=== PATIENT | male | born 1990 | race Caucasian/White ===

== ENCOUNTER 2017-04-01 14:08 | Emergency (ER) | payer OTHER ==
[~2017-04-01] VITALS: Ht 172.7 cm; Wt 64.2 kg
[2017-04-01 14:20] VITALS: TEMP 36.9; Ht 172.7 cm; Wt 64.2 kg
[2017-04-01 14:27] VITALS: O2SAT 100
[2017-04-01] MEDS ORDERED: SODIUM CHLORIDE 0.9% 1000ML 1,000 ML IV STA (14:42)
--- NOTE | 2017-04-01 15:03 | DIAGNOSTIC IMAGING REPORT ---
CHEST ONE VIEW PORTABLE HISTORY: 27 years-old Male tachycardia acute tachycardia COMPARISON: None available TECHNIQUE: Upright AP view of the chest FINDINGS: Cardiomediastinal and hilar silhouettes are within normal limits. There is no pneumothorax, pleural effusion, focal airspace consolidation or overt pulmonary edema. The bones of the chest are grossly intact. IMPRESSION: No acute cardiopulmonary process. The above report was generated using voice recognition software. It may contain grammatical, syntax or spelling errors. Electronically signed by: Favian Alvarez M.D. 04/01/2017 3:02 PM Dictated Date/Time: 04/01/2017 3:01 PM
[2017-04-01 15:05] LABS: BUN/CREATININE RATIO 13.2 (10-20); CALCIUM 9.6 mg/dl (8.5-10.1); CREATININE 1.03 mg/dl (0.60-1.40); MAGNESIUM 2.1 mg/dl (1.8-2.4); POTASSIUM 3.7 mmol/L (3.5-5.1)
[2017-04-01 15:06] LABS: POINT OF CARE TROPONIN I < 0.030 ng/ml (0-0.045)
--- NOTE | 2017-04-01 15:11 | EMERGENCY ROOM VISIT NOTE ---
History First contact with patient: 14:25 Chief Complaint: TACHYCARDIA Stated Complaint: HIGH RESTING HEARTRATE, TROUBLE BREATHING Nursing Triage Summary: Pt. reports symptoms started on with a feeling of not being able to catch his breath. He then developed a rapid resting heart rate and feeling of his heart pounding in his chest and a "fuzzy feeling" in his head. He reports decreased appetite and decreased fluid intake. Denies any chest pain. History of Present Illness The patient is a 27 year old male who presents to the Emergency Room with complaints of elevated heart rate which began 3 days ago. The patient reports that beginning on , he felt like he was unable to catch his breath and felt like his heart was racing intermittently. The patient's symptoms persisted throughout the next day and worsened over the past 2 days. He states that his symptoms are intermittent but are more frequent at this time. He feels his heart racing and feels unable to catch his breath. He also reports that his head feels "cloudy." He has had a decreased appetite and decreased fluid intake. He denies any history of similar symptoms. He denies any cardiac history. He does note that his brother had a heart valve disorder and at a young age due to complications of this. Review of Systems A complete 10 point review of systems was reviewed with the patient with pertinent positives and negatives as per history of present illness. All else were negative. Social History Smoking Status: Current Some Day Smoker Current/Historical Medications Scheduled PRN Lorazepam (Ativan), 1-2 TAB PO TID PRN for Anxiety Physical Exam Vital Signs Date Time Temp Pulse Resp B/P (MAP) Pulse Ox O2 Delivery O2 Flow Rate FiO2 04/01/17 16:43 96 15 131/79 99 04/01/17 16:01 98 16 143/83 100 Room Air 04/01/17 15:30 95 11 128/81 100 Room Air 04/01/17 15:00 115 14 138/80 100 Room Air 04/01/17 14:36 102 19 150/87 100 Room Air 04/01/17 14:35 127 04/01/17 14:27 100 Room Air 04/01/17 14:27 100 Room Air 04/01/17 14:20 36.9 135 20 167/82 100 Room Air Physical Exam VITALS: Vitals are noted on the nurse's note and reviewed by myself. Vital signs stable. GENERAL: This is a 27-year-old male, in no acute distress, nondiaphoretic, well- developed well-nourished. SKIN: Capillary reflex less than 2 seconds. HEENT: Normocephalic. PERRLA. EOMI. Nares patent. Mucous membranes moist. Neck is supple without nuchal rigidity. HEART: Regular rate and rhythm without murmurs gallops or rubs. LUNGS: Clear to auscultation bilaterally without wheezes, rales or rhonchi. No retractions or accessory muscle use. NEURO: Patient was alert and oriented to person place and time. Medical Decision & Procedures ER Provider Diagnostic Interpretation: CHEST ONE VIEW PORTABLE FINDINGS: Cardiomediastinal and hilar silhouettes are within normal limits. There is no pneumothorax, pleural effusion, focal airspace consolidation or overt pulmonary edema. The bones of the chest are grossly intact. IMPRESSION: No acute cardiopulmonary process. Laboratory Results 04/01/17 14:35 Red Blood Count 6.16, Mean Corpuscular Volume 68.3, Mean Corpuscular Hemoglobin 22.4, Mean Corpuscular Hemoglobin Concent 32.8, Neutrophils (%) (Auto) 84.5, Lymphocytes (%) (Auto) 11.8, Monocytes (%) (Auto) 3.3, Eosinophils (%) (Auto) 0.0, Basophils (%) (Auto) 0.3, Neutrophils # (Auto) 6.72, Lymphocytes # (Auto) 0.94, Monocytes # (Auto) 0.26, Eosinophils # (Auto) 0.00, Basophils # (Auto) 0.02 04/01/17 14:35 Test 04/01/17 14:35 04/01/17 14:46 White Blood Count 7.95 K/uL (4.8-10.8) Red Blood Count 6.16 M/uL (4.7-6.1) Hemoglobin 13.8 g/dL (14.0-18.0) Hematocrit 42.1 % (42-52) Mean Corpuscular Volume 68.3 fL (80-100) Mean Corpuscular Hemoglobin 22.4 pg (25-34) Mean Corpuscular Hemoglobin Concent 32.8 g/dl (32-36) Platelet Count 412 K/uL (130-400) Neutrophils (%) (Auto) 84.5 % Lymphocytes (%) (Auto) 11.8 % Monocytes (%) (Auto) 3.3 % Eosinophils (%) (Auto) 0.0 % Basophils (%) (Auto) 0.3 % Neutrophils # (Auto) 6.72 K/uL (1.4-6.5) Lymphocytes # (Auto) 0.94 K/uL (1.2-3.4) Monocytes # (Auto) 0.26 K/uL (0.11-0.59) Eosinophils # (Auto) 0.00 K/uL (0-0.5) Basophils # (Auto) 0.02 K/uL (0-0.2) Immature Granulocyte % (Auto) 0.1 % Immature Granulocyte # (Auto) 0.01 K/uL (0.00-0.02) Microcytosis PRESENT Spherocytes 1+ Ovalocytes 1+ Echinocytes 1+ Anion Gap 13.0 mmol/L (3-11) Est Creatinine Clear Calc Drug Dose 98.7 ml/min Estimated GFR () 115.7 Estimated GFR (Non- 99.8 BUN/Creatinine Ratio 13.2 (10-20) Calcium Level 9.6 mg/dl (8.5-10.1) Magnesium Level 2.1 mg/dl (1.8-2.4) Total Bilirubin 0.6 mg/dl (0.2-1) Aspartate Amino Transf (AST/SGOT) 10 U/L (15-37) Alanine Aminotransferase (ALT/SGPT) 21 U/L (12-78) Alkaline Phosphatase 89 U/L (45-117) Total Protein 10.0 gm/dl (6.4-8.2) Albumin 5.0 gm/dl (3.4-5.0) Globulin 5.0 gm/dl (2.5-4.0) Albumin/Globulin Ratio 1.0 (0.9-2) Thyroid Stimulating Hormone (TSH) 1.270 uIu/ml (0.300-4.500) Bedside D-Dimer 132 ng/mlFEU (0-450) Bedside Troponin I < 0.030 ng/ml (0-0.045) Medications Administered Medications (Trade) Dose Ordered Sig/Kate Route Start Time Stop Time Status Last Admin Dose Admin Sodium Chloride 1,000 ml @ 999 mls/hr Q1H1M STAT IV 04/01/17 14:42 04/01/17 15:42 DC 04/01/17 14:54 999 MLS/HR Lorazepam (Ativan Tab) 0.5 mg NOW STAT SL 04/01/17 15:53 04/01/17 15:54 DC 04/01/17 16:00 0.5 MG ECG Rate (beats per minute): 122 Rhythm: sinus tachycardia Findings: nonspecific-ST abn, no acute ischemic change, no ectopy Comparison ECG Date: no prior available Medical Decision Differential diagnosis includes arrhythmia, dehydration, anxiety, thyroid disorder, electrolyte imbalance, among others. The patient is a 27-year-old male who presents today complaining of and elevated heart rate. Patient was initially found to be tachycardic in the 130s. EKG showed a sinus tachycardia with no obvious acute changes. Labs revealed no leukocytosis or anemia. There were no concerning electrolyte abnormalities. Troponin was not elevated. TSH was within normal limits. Patient was given a 1 L normal saline bolus. This improved his heart rate significantly. At rest, his heart rate was in the 80s. Of note, his heart rate did increase when nursing staff entered the room to talk to the patient. A repeat EKG was performed and showed a normal sinus rhythm. I did have a lengthy conversation with the patient regarding his symptoms. He does admit to feeling anxious recently, as he has a big presentation which is due this week. I do feel that his anxiety as well as dehydration is likely contributed to his tachycardia. He was given a dose of Ativan and stated that it made him feel sleepy. He was given a short course of Ativan to try at home for symptoms. He was encouraged to stay well hydrated. He will follow-up with [facility] or another primary care provider for further evaluation of these symptoms. The patient's case was reviewed with Dr. Dhillon, ED attending physician, who agreed with my assessment and treatment plan. Based on the patient's presentation and work up, I feel the patient is stable for outpatient treatment. The patient was educated to return to the emergency department for any worsening of their current condition or new/concerning symptoms. He will follow up with his PCP. Medication Reconcilliation Current Medication List: was personally reviewed by me Blood Pressure Screening Patient's blood pressure: Normal blood pressure Impression Primary Impression: Tachycardia Departure Information Dispostion Home / Self-Care Condition GOOD Prescriptions Lorazepam (ATIVAN) 0.5 Mg Tab 1-2 TAB PO TID Y for Anxiety, #9 TAB Prov: Sujatha Suazo .RAMOS 04/01/17 Referrals Alfa Rowland D.O. (PCP) Patient Instructions My [facility] Additional Instructions You may take the Ativan, 1-2 tablets as needed up to 3 times daily for anxiety. Make sure to stay well-hydrated and increase fluid intake. Follow-up with a primary care provider this week. You may follow-up with [facility] or make an appointment with the [facility] physician group or another primary care. Return to the emergency with any worsening symptoms, chest pain, difficulty breathing or other new/concerning symptoms.
[2017-04-01 15:15] LABS: BASO % 0.3 %; BASO ABS # 0.02 K/uL (0-0.2); COMPLETE YES; ECHINOCYTES 1+; HEMATOCRIT 42.1 % (42-52); IG% 0.1 %; LYMPH % 11.8 %; LYMPH ABS # 0.94 K/uL (1.2-3.4); MEAN CELL VOLUME 68.3 fL (80-100); MEAN CORPUSCULAR HEMOGLOBIN 22.4 pg (25-34); MEAN CORPUSCULAR HGB CONC 32.8 g/dl (32-36); MICROCYTOSIS PRESENT; MONO % 3.3 %; NEUT % 84.5 %; OVALOCYTES 1+; PLATELET COUNT 412 K/uL (130-400); RED BLOOD COUNT 6.16 M/uL (4.7-6.1); SPHEROCYTE 1+; WHITE BLOOD COUNT 7.95 K/uL (4.8-10.8)
[2017-04-01 15:16] LABS: THYROID STIMULATING HORMONE 1.27 uIu/ml (0.300-4.500)
[2017-04-01] MEDS ORDERED: LORAZEPAM 0.5 MG TAB SL STA (15:53)
[2017-04-01] MEDS ORDERED: LORA-741 PO (16:32)
[2017-04-01 16:43] VITALS: BP 131/79; PULSE 96; O2SAT 99
== END 2017-04-01 16:40 | disposition home or self-care (01) ==
LOC: C.EDB 14:10
DX: R00.0 Tachycardia, unspecified (principal); F41.9 Anxiety disorder, unspecified; E86.0 Dehydration; F17.200 Nicotine dependence, unspecified, uncomplicated; Z82.49 Family history of ischemic heart disease and other diseases of the circulatory system